=== PATIENT | female | born 1980 | race Asian ===

== ENCOUNTER 2017-06-05 09:17 | Emergency (ER) | payer OTHER ==
[2017-06-05] MEDS: HYDROCHLOROTHIAZIDE 25 MG TAB PO (10:19)
[2017-06-05] MEDS: BENAZEPRIL 10 MG TAB PO (10:19)
== END 2017-06-05 11:12 | disposition home or self-care (01) ==
LOC: FTE 09:17
DX: I10 Essential (primary) hypertension (principal); E66.9 Obesity, unspecified; Z68.43 Body mass index [BMI] 50.0-59.9, adult
CPT/HCPCS: 93005; 99284-25